=== PATIENT | male | born 1995 | race Caucasian/White ===

== ENCOUNTER 2020-02-16 01:48 | Emergency (ER) | payer OTHER ==
[~2020-02-16] VITALS: Ht 177.8 cm; Wt 81.6 kg
[2020-02-16 01:49] VITALS: Ht 177.8 cm; Wt 81.6 kg
[2020-02-16 02:09] VITALS: BP 110/82
== END 2020-02-16 02:09 | disposition other institution (70) ==
LOC: ED 01:48
DX: Z02.89 Encounter for other administrative examinations (principal)